=== PATIENT | female | born 1985 | race Caucasian/White ===

== ENCOUNTER 2016-11-19 16:54 | Inpatient (IN) | payer BC ==
[2016-11-19] MEDS ORDERED: TYLENOL EXTRA STRENGTH 500 MG PO PRN (17:34)
[2016-11-19] MEDS ORDERED: Nubain 10 MG/ML IV PRN (17:34)
[2016-11-19] MEDS ORDERED: XYLOCAINE 1% HCL 20 ML MDV IJ PRN (17:34)
[2016-11-19] MEDS ORDERED: Zofran 4 MG/2 ML VIAL IV PRN (17:34)
[2016-11-19] MEDS ORDERED: Phenergan 25 MG INJ IV PRN (17:34)
[2016-11-19] MEDS ORDERED: OMNIPEN 2 GM / NACL 100ML 100 ML IV ONE (17:34)
[2016-11-19] MEDS ORDERED: STADOL 2 MG IV PRN (17:34)
[2016-11-19] MEDS ORDERED: BRETHINE 1 MG/ML SQ PRN (17:34)
[2016-11-19] MEDS ORDERED: PITOCIN 30 UNITS/ LR 500 ML 500 ML IV SCH (18:00)
[2016-11-19 18:37] LABS: BASOPHIL % 0.2 % (0.0-0.4); Eosinophil % 0.9 % (0.00-5.0); Granulocytes % 77.7 % (36.0-66.0); Lymphocytes % 16.6 % (24.0-44.0); Mean Cell Volume 89.5 fl (78-100); Mean Corpuscular Hemoglobin 30.3 pg (26-32); Mean Platelet Volume 12.6 fl (6-9.5); Monocytes % 4.6 % (0.0-12.0); Platelet Count 171 K/mm3 (150-450); Red Blood Count 4.09 M/mm3 (4.1-5.4); Red Cell Distribution Width 12.7 % (11.5-14.0); White Blood Count 12.3 K/mm3 (4.0-10.5)
[2016-11-19] MEDS ORDERED: Cervidil 10 MG VAG SCH (22:00)
[2016-11-20] MEDS ORDERED: Lactated Ringers 1,000 ML IV ONE ×2 (04:41→15:15)
[2016-11-20] MEDS: Lactated Ringers 1,000 ML IV SCH ×2 (05:59→15:16)
[2016-11-20] MEDS ORDERED: OMNIPEN 2 GM / NACL 100ML 100 ML IV ONE (06:00)
[2016-11-20] MEDS ORDERED: PITOCIN 30 UNITS/ LR 500 ML 500 ML IV SCH (06:00)
[2016-11-20] MEDS ORDERED: OMNIPEN 1GM / NaCl 100ML 100 ML IV SCH (10:00)
[2016-11-20] MEDS ORDERED: Dermoplast Spray TP PRN (13:49)
[2016-11-20] MEDS ORDERED: TYLENOL EXTRA STRENGTH 500 MG PO PRN (13:49)
[2016-11-20] MEDS ORDERED: TUCKS TP PRN (13:49)
[2016-11-20] MEDS ORDERED: CORTISONE 1% CREAM TP PRN (13:49)
[2016-11-20] MEDS ORDERED: Mylicon 80MG PO PRN (13:49)
[2016-11-20] MEDS ORDERED: LANSINOH 40 GM TOP PRN (13:49)
[2016-11-20] MEDS ORDERED: Ambien 10 MG PO PRN (13:49)
[2016-11-20] MEDS ORDERED: Anucort-HC SUPPOSITORY PR PRN (13:49)
[2016-11-20] MEDS ORDERED: NORCO 5/325 MG PO PRN (13:49)
[2016-11-20] MEDS ORDERED: Dulcolax 10 MG SUPP PR PRN (13:49)
[2016-11-20] MEDS ORDERED: Adacel Vial IM ONE (17:00)
[2016-11-20] MEDS: MOTRIN 400 MG PO PRN (21:26)
[2016-11-20] MEDS: Colace 100 MG PO SCH (21:26)
[2016-11-21] MEDS: MOTRIN 400 MG PO PRN ×3 (04:30→20:20)
[2016-11-21 06:23] LABS: BASOPHIL % 0.1 % (0.0-0.4); Eosinophil % 0.2 % (0.00-5.0); Granulocytes % 76.8 % (36.0-66.0); Lymphocytes % 17.6 % (24.0-44.0); Mean Platelet Volume 12.7 fl (6-9.5); Monocytes % 5.3 % (0.0-12.0); Platelet Count 149 K/mm3 (150-450); Red Blood Count 3.27 M/mm3 (4.1-5.4); Red Cell Distribution Width 12.7 % (11.5-14.0); White Blood Count 14.3 K/mm3 (4.0-10.5)
[2016-11-21 06:25] LABS: Mean Corpuscular Hemoglobin 30.2 pg (26-32)
[2016-11-21] MEDS: FERREX 150 PO SCH (09:23)
[2016-11-21] MEDS: Colace 100 MG PO SCH ×2 (09:23→21:06)
[2016-11-21 21:28] VITALS: O2SAT 98
--- NOTE | 2016-11-22 08:52 | PCM.DS ---
Discharge Summary Date of Admission: 11/20/16 08:46 Admitting Physician: ASHLEE MARTIN Consults: Consults on Case 11/20/16 09:32 Notify Physician UD 11/20/16 13:50 Notify Physician ROUTINE Primary Care Provider: ASHLEE MARTIN Allergies Allergies No Known Drug Allergies Allergy (Unverified 11/19/16 20:05) Hospital Summary - Hospital Course Hospital Course: 31yo elective induced lilia 40wks, had with 3rd degree perineal laceration. no problems , pain controlled, has had a BM with no problems. mild lochia, and well bonded with - Vitals & Intake/Output Vital Signs: Vital Signs Temperature 98.0 F 11/22/16 02:00 Pulse Rate 100 H 11/22/16 02:00 Respiratory Rate 16 11/22/16 02:00 Blood Pressure 130/80 11/22/16 02:00 O2 Sat by Pulse Oximetry 98 11/22/16 02:00 Intake & Output: Intake & Output 11/19/16 11/20/16 11/21/16 11/22/16 11:59 11:59 11:59 11:59 Intake Total 100 4056 Balance 100 4056 Weight 92.986 kg 92.986 kg - Lab Result Diagrams: 11/21/16 05:10 Discharge Exam General Appearance: no apparent distress, alert Skin Exam: normal color, warm, dry Respiratory Exam: normal breath sounds, lungs clear, No respiratory distress Cardiovascular Exam: regular rate/rhythm, normal heart sounds Gastrointestinal/Abdomen Exam: soft, No tenderness, No mass Extremity Exam: normal inspection, normal range of motion Final Diagnosis/Problem List - Final Discharge Diagnosis/Problem (1) Vaginal delivery Current Visit: Yes Status: Acute (2) Third degree perineal laceration during delivery Current Visit: Yes Status: Acute (3) (infant) Current Visit: Yes Status: Acute - Discharge Disposition: Home, Self-Care Condition: Stable Prescriptions: New Breast Pump 1 each MC DAILY #1 each Docusate Sodium 100 mg [Colace 100 MG] 100 mg PO BID #60 capsule Continue Vits W-Ca,Fe,FA(<1Mg) [] 1 tab PO DAILY Follow up with: ASHLEE MARTIN MD [Primary Care Provider] - 1 Week
[2016-11-22 09:45] VITALS: BP 135/78; PULSE 116
[2016-11-22] MEDS: Colace 100 MG PO SCH (13:44)
[2016-11-22] MEDS: FERREX 150 PO SCH (13:44)
== END 2016-11-22 14:10 | disposition home or self-care (01) | DRG 775 ==
LOC: UNDOADMOB 16:54 → OB 16:54 → OBSVTOIN 11-20 08:46
PROVIDERS: ADMIT Family Medicine; ATTEND Family Medicine
PROC: 10E0XZZ Delivery of Products of Conception, External Approach (ICD-10-PCS; principal; 2016-11-20)
PROC: 0DQR0ZZ Repair Anal Sphincter, Open Approach (ICD-10-PCS; 2016-11-20)
DX: O70.20 Third degree perineal laceration during delivery, unspecified (principal); Z3A.40 40 weeks gestation of pregnancy; Z37.0 Single live birth
CPT/HCPCS: 36415; 80307; 85025; 90715; G0378; J0290; J2590; A9270-GY

== ENCOUNTER 2018-07-01 05:02 | Inpatient (IN) | payer BC ==
[2018-07-01] MEDS ORDERED: XYLOCAINE 1% HCL 20 ML MDV IJ PRN (05:11)
[2018-07-01] MEDS ORDERED: BRETHINE 1 MG/ML SQ PRN (05:12)
[2018-07-01] MEDS ORDERED: Lactated Ringers 1,000 ML IV SCH (05:30)
[2018-07-01] MEDS ORDERED: PITOCIN 30 UNITS/ LR 500 ML 500 ML IV SCH ×2 (05:30)
[2018-07-01 05:33] LABS: Amphetamine,Urine NEGATIVE (NEGATIVE); Barbiturate,Urine NEGATIVE (NEGATIVE); Benzodiazepine,Urine NEGATIVE (NEGATIVE); Cocaine,Urine NEGATIVE (NEGATIVE); Methadone,Urine NEGATIVE (NEGATIVE); Opiate,Urine NEGATIVE (NEGATIVE); PCP,Urine NEGATIVE (NEGATIVE); THC,Urine NEGATIVE (NEGATIVE)
[2018-07-01 05:52] LABS: BASOPHIL % 0.5 % (0.0-0.4); Basophil (Absolute #) 0.04 (0-0.4); Eosinophil % 1.7 % (0.00-5.0); Eosinophil (Absolute #) 0.15 (0-0.5); Granulocyte Absolute (ANC) 6.11 (1.4-6.9); Granulocytes % 69.8 % (36.0-66.0); Hematocrit 37.8 % (35-47); Hemoglobin 12.6 gm/dl (12.0-16.0); Lymphocyte (Absolute #) 1.73 (1.0-4.6); Lymphocytes % 19.8 % (24.0-44.0); Mean Cell Volume 90.2 fl (78-100); Mean Corpuscular Hemoglobin 30.1 pg (26-32); Mean Corpuscular Hgb Concent. 33.3 g/dl (32-36); Mean Platelet Volume 12.4 fl (6-9.5); Monocyte (Absolute #) 0.72 (0.0-1.3); Monocytes % 8.2 % (0.0-12.0); Platelet Count 155 K/mm3 (150-450); Red Blood Count 4.19 M/mm3 (4.1-5.4); Red Cell Distribution Width 13.3 % (11.5-14.0); White Blood Count 8.8 K/mm3 (4.0-10.5)
[2018-07-01] MEDS ORDERED: Anucort-HC SUPPOSITORY PR PRN (11:01)
[2018-07-01] MEDS ORDERED: Dulcolax 10 MG SUPP PR PRN (11:01)
[2018-07-01] MEDS ORDERED: TUCKS TP PRN (11:01)
[2018-07-01] MEDS ORDERED: Dermoplast Spray TP PRN (11:01)
[2018-07-01] MEDS ORDERED: NORCO 5/325 MG PO PRN (11:01)
[2018-07-01] MEDS ORDERED: CORTISONE 1% CREAM TP PRN (11:01)
[2018-07-01] MEDS ORDERED: Mylicon 80MG PO PRN (11:01)
[2018-07-01] MEDS ORDERED: LANSINOH 40 GM TOP PRN (11:01)
[2018-07-01] MEDS ORDERED: TYLENOL EXTRA STRENGTH 500 MG PO PRN (11:01)
[2018-07-01] MEDS ORDERED: Ambien 10 MG PO PRN (11:01)
[2018-07-01] MEDS ORDERED: Restoril 15 MG PO PRN (11:01)
[2018-07-01] MEDS: MOTRIN 400 MG PO PRN (21:48)
[2018-07-01] MEDS: Colace 100 MG PO SCH (21:48)
[2018-07-02] MEDS ORDERED: CEFAZOLIN 2 GM-D5W BAG** 2 GM/50 ML ML IV SCH (05:30)
[2018-07-02 05:47] LABS: BASOPHIL % 0.4 % (0.0-0.4); Basophil (Absolute #) 0.04 (0-0.4); Eosinophil % 1.2 % (0.00-5.0); Eosinophil (Absolute #) 0.11 (0-0.5); Granulocyte Absolute (ANC) 6.45 (1.4-6.9); Granulocytes % 70.3 % (36.0-66.0); Hematocrit 34.9 % (35-47); Hemoglobin 11.6 gm/dl (12.0-16.0); Lymphocyte (Absolute #) 2.05 (1.0-4.6); Lymphocytes % 22.3 % (24.0-44.0); Mean Cell Volume 91.4 fl (78-100); Mean Corpuscular Hgb Concent. 33.2 g/dl (32-36); Mean Platelet Volume 12.6 fl (6-9.5); Monocyte (Absolute #) 0.53 (0.0-1.3); Monocytes % 5.8 % (0.0-12.0); Platelet Count 146 K/mm3 (150-450); Red Blood Count 3.82 M/mm3 (4.1-5.4); Red Cell Distribution Width 13.4 % (11.5-14.0); White Blood Count 9.2 K/mm3 (4.0-10.5)
[2018-07-02 05:51] LABS: Mean Corpuscular Hemoglobin 30.3 pg (26-32)
[2018-07-02 06:04] LABS: INR 0.9 (0.8-3.0); PROTIME 10.5 SECONDS (9.95-12.35)
[2018-07-02 06:06] LABS: PTT 25.6 SECONDS (25.3-37.0)
[2018-07-02] MEDS ORDERED: Lactated Ringers 1,000 ML IV ONE ×2 (06:45→07:16)
[2018-07-02] MEDS ORDERED: BICITRA 30 ML CUP PO SCH (06:45)
[2018-07-02] MEDS ORDERED: Lactated Ringers 1,000 ML IV SCH (06:45)
[2018-07-02] MEDS ORDERED: Reglan 10 MG/2 ML IV SCH (06:45)
[2018-07-02] MEDS ORDERED: Pepcid 20 MG VIAL IV SCH (06:45)
[2018-07-02] MEDS ORDERED: Sensorcaine 0.25% 10 ML ONE (07:16)
--- NOTE | 2018-07-02 09:43 | OP ---
SURGERY DATE/TIME: 07/02/2018 0801 PREOPERATIVE DIAGNOSIS: Patient desires permanent sterilization. POSTOPERATIVE DIAGNOSIS: Patient desires permanent sterilization. PROCEDURES: bilateral tubal ligation. SURGEON: Armando Marx M.D. ANESTHESIA: General by Hermes Perez CRNA. ESTIMATED BLOOD LOSS: Minimal. SPECIMENS: Bilateral fallopian tube segments. INDICATIONS: After informed, written consent was obtained, consent form was reviewed and present on the chart. The patient signed 03/30/2018. I again reviewed the permanent nature of this procedure and also the accepted failure rate of 1:300. She elected to proceed. DESCRIPTION OF PROCEDURE: She underwent general anesthesia and was prepped and draped in usual sterile fashion. An infraumbilical incision was made by knife and carried down through the subcutaneous fat to the level of the fascia. The fascia was grasped with mosquito and tented up and then carefully opened with Metzenbaum scissors. The left fallopian tube was first identified and carried down to the fimbrial edge, grasped with a Shayan and cautery was used to make a window in the mesoappendix. Proximal and distal segments were ligated with chromic tie and the interceding tube segment was dissected free. The free edge of the tube was then cauterized on proximal and distal tube segments using electrocautery. The area was hemostatic. The same was repeated on the right side with no complications. The fascia was closed with 0 Vicryl in running fashion with good closure and good hemostasis were achieved. The subcutaneous fat was irrigated with warm sterile saline and then the skin layer was closed with 4-0 undyed Vicryl in a running subcuticular fashion. Steri-Strips and occlusive dressing were placed over the incision. The patient was transferred to the recovery room in good condition.
[2018-07-02] MEDS: MOTRIN 400 MG PO PRN ×2 (10:03→17:57)
[2018-07-02] MEDS: Colace 100 MG PO SCH ×2 (10:03→22:00)
[2018-07-02] MEDS: FERREX 150 PO SCH (10:03)
[2018-07-02] MEDS ORDERED: DIPRIVAN 200 MG/20 ML IV ONE (13:50)
[2018-07-02] MEDS ORDERED: SUBLIMAZE 100 MCG/2 ML IV ONE (13:59)
[2018-07-02] MEDS: THERAGRAN MULTIVITAMIN PO SCH (18:49)
[2018-07-03 03:22] VITALS: O2SAT 97
[2018-07-03] MEDS: MOTRIN 400 MG PO PRN (06:45)
--- NOTE | 2018-07-03 07:46 | PCM.DS ---
Discharge Summary Date of Admission: 07/01/18 08:45 Admitting Physician: ASHLEE MARTIN Consults: Consults on Case 07/02/18 07:00 Notify Anesthesia Provider ROUTINE Primary Care Provider: ASHLEE MARTIN Allergies Allergies No Known Drug Allergies Allergy (Unverified 11/19/16 20:05) Hospital Summary - Hospital Course Hospital Course: patient had uncomplicated on 07/01/18, doing well . had second degree perineal laceration repair. had a tubal on 07/02 with no complications. and doing well. - Vitals & Intake/Output Vital Signs: Vital Signs Temperature 97.8 F 07/03/18 02:00 Pulse Rate 82 07/03/18 02:00 Respiratory Rate 16 07/03/18 02:00 Blood Pressure 125/88 07/03/18 02:00 O2 Sat by Pulse Oximetry 97 07/03/18 02:00 Intake & Output: Intake & Output 06/30/18 07/01/18 07/02/18 07/03/18 11:59 11:59 11:59 11:59 Intake Total 3150 Balance 3150 Weight 98.883 kg 98.883 kg - Lab Result Diagrams: 07/02/18 05:06 Discharge Exam General Appearance: no apparent distress, alert Respiratory Exam: normal breath sounds, lungs clear, No respiratory distress Cardiovascular Exam: regular rate/rhythm, normal heart sounds Gastrointestinal/Abdomen Exam: soft, other (incision clean, dry, intact), No tenderness, No mass Extremity Exam: normal inspection, normal range of motion Final Diagnosis/Problem List - Final Discharge Diagnosis/Problem (1) Vaginal delivery Current Visit: No Status: Acute Code(s): O80 - ENCOUNTER FOR FULL-TERM UNCOMPLICATED DELIVERY (2) Second degree perineal laceration during delivery Current Visit: Yes Status: Acute Code(s): O70.1 - SECOND DEGREE PERINEAL LACERATION DURING DELIVERY (3) Tubal ligation status Current Visit: Yes Status: Acute Code(s): Z98.51 - TUBAL LIGATION STATUS (4) () Current Visit: No Status: Acute Code(s): Z78.9 - OTHER SPECIFIED HEALTH STATUS - Discharge Disposition: Home, Self-Care Condition: Stable Prescriptions: New Breast Pump 1 each UD #1 each Continue Vits W-Ca,Fe,FA(<1Mg) [] 1 tab PO DAILY Follow up with: ASHLEE MARTIN MD [Primary Care Provider] - 1 Week
[2018-07-03] MEDS: Colace 100 MG PO SCH (08:46)
[2018-07-03] MEDS: FERREX 150 PO SCH (08:46)
[2018-07-03] MEDS: THERAGRAN MULTIVITAMIN PO SCH (08:46)
[2018-07-03 09:24] VITALS: BP 144/82; PULSE 103
[2018-07-03] MEDS ORDERED: NON-FORMULARY ITEM (Prenatal Vits W-Ca,Fe,Fa(<1mg) [Prenatal] 1 TAB) PO SCH (10:00)
== END 2018-07-03 10:30 | disposition home or self-care (01) | DRG 798 ==
LOC: OB 05:02 → OBSVTOIN 08:45
PROVIDERS: ADMIT Family Medicine; ATTEND Family Medicine
PROC: 0KQM0ZZ Repair Perineum Muscle, Open Approach (ICD-10-PCS; principal; 2018-07-01)
PROC: 10E0XZZ Delivery of Products of Conception, External Approach (ICD-10-PCS; 2018-07-01)
PROC: 0UL70ZZ Occlusion of Bilateral Fallopian Tubes, Open Approach (ICD-10-PCS; 2018-07-02)
DX: O70.1 Second degree perineal laceration during delivery (principal); Z37.0 Single live birth; O69.81X0 Labor and delivery complicated by cord around neck, without compression, not applicable or unspecified; Z3A.40 40 weeks gestation of pregnancy; Z30.2 Encounter for sterilization
CPT/HCPCS: 36415; 80307; 85025; 85610; 85730; 88302; G0378; J0690; J2590; J2704; J3010; A9270-GY

== ENCOUNTER 2021-11-15 07:29 | Emergency (ER) | payer BC ==
[2021-11-15] MEDS ORDERED: MORPHINE SULFATE 4 MG INJ IV ONE (07:48)
[2021-11-15] MEDS ORDERED: Zofran 4 MG/2 ML VIAL IV ONE (07:48)
--- NOTE | 2021-11-15 07:52 | ERPHSYRPT ---
- History of Present Illness Time Seen by Provider: 11/15/21 07:35 Historian: patient Exam Limitations: no limitations Patient Subjective Stated Complaint: Abdominal pain Triage Nursing Assessment: Patient ambulated back to ED and transferred self to bed. Patient A+O X3. Patient's skin pink, warm and dry. Patient complains of right lower abdominal pain intermittently since Friday. Patient denies N/V or diarrhea. Patient abdomen soft and round with BS X 4. Patient states pain is constant aching with intermittent sharp pain that goes into back 11/07. Physician History: 36-year-old female presented in ER with chief complaint of right-sided abdominal pain more in the right lower quadrant moderate to severe intensity dull to sharp, intermittent, more with ambulation/movement and better with lying. Reports some radiation to the back. Denies associated nausea or vomiting. denies any urinary symptoms. Does report having constipation and took MiraLAX which relieved her constipation yesterday. No fever or chills reported. Timing/Duration: day(s), intermittent, gradual onset, worse Quality: dullness, sharpness Abdominal Pain Onset Location: RUQ, RLQ, flank Pain Radiation: back Severity of Pain-Max: moderate Severity of Pain-Current: moderate Modifying Factors: Improves With: lying down. Worsens With: movement, palpation Associated Symptoms: denies symptoms Previous symptoms: no prior history Allergies/Adverse Reactions: No Known Drug Allergies Allergy (Verified 11/15/21 07:35) Hx Influenza Vaccination/Date Given: No Hx Pneumococcal Vaccination/Date Given: No Immunizations Up to Date: Yes Travel Risk - International Travel Have you traveled outside of the country in past 3 weeks: No - Coronavirus Screening Are you exhibiting any of the following symptoms?: No Close contact with a COVID-19 positive Pt in past 14-21 Days: No - Vaccine Status Have you recieved a Covid-19 vaccination: Yes Magnetic Tape Winder: Heyy - Review of Systems Constitutional: No Symptoms Eyes: No Symptoms Ears, Nose, & Throat: No Symptoms Respiratory: No Symptoms Cardiac: No Symptoms Abdominal/Gastrointestinal: Abdominal Pain Genitourinary Symptoms: No Symptoms Musculoskeletal: No Symptoms Skin: No Symptoms Neurological: No Symptoms Psychological: No Symptoms Endocrine: No Symptoms Hematologic/Lymphatic: No Symptoms Immunological/Allergic: No Symptoms - Past Medical History Pertinent Past Medical History: No Neurological History: No Pertinent History ENT History: No Pertinent History Cardiac History: No Pertinent History Respiratory History: No Pertinent History Endocrine Medical History: No Pertinent History Musculoskeletal History: No Pertinent History GI Medical History: No Pertinent History History: No Pertinent History Psycho-Social History: No Pertinent History Female Reproductive Disorders: No Pertinent History - Past Surgical History Past Surgical History: Yes Neuro Surgical History: No Pertinent History Cardiac: No Pertinent History Respiratory: No Pertinent History Gastrointestinal: No Pertinent History Genitourinary: No Pertinent History Musculoskeletal: Other Female Surgical History: Tubal Ligation Other Surgical History: removal of calcium buildup on left foot and bilateral Eye surgery for crossed to help with the muscles in her eyes. trigger thumb Right - Social History Smoking Status: Never smoker Exposure to second hand smoke: No Drug Use: none Patient Lives Alone: No - Female History Hx Last Menstrual Period: last week Hx Now: No - Nursing Vital Signs Nursing Vital Signs: Initial Vital Signs Temperature 96.9 F 11/15/21 07:38 Pulse Rate 84 11/15/21 07:38 Respiratory Rate 18 11/15/21 07:38 Blood Pressure 159/125 11/15/21 07:38 O2 Sat by Pulse Oximetry 100 11/15/21 07:38 Pain Scale Pain Intensity 7 - Physical Exam General Appearance: no apparent distress, alert Eye Exam: PERRL/EOMI Ears, Nose, Throat Exam: normal ENT inspection Neck Exam: normal inspection, full range of motion Respiratory Exam: normal breath sounds, lungs clear Cardiovascular Exam: regular rate/rhythm, normal heart sounds Gastrointestinal/Abdomen Exam: soft, normal bowel sounds, tenderness (Right flank/right lower quadrant. Negative Rosing sign. Negative obturator sign.), No guarding Back Exam: normal inspection, normal range of motion, No CVA tenderness Extremity Exam: normal inspection Neurologic Exam: alert, oriented x 3, cooperative Skin Exam: normal color SpO2 Interpretation: normal SpO2: 100 O2 Delivery: Room Air Ordered Tests: Active Orders 24 hr Category Date Time Status IV Insertion STAT Care 11/15/21 07:48 Active NPO (ED) STAT Care 11/15/21 07:48 Active ABDOMEN AND PELVIS W/0 CONTRAS [CT] Stat Exams 11/15/21 07:48 Completed CBC W DIFF Stat Lab 11/15/21 07:49 Completed CMP Stat Lab 11/15/21 07:52 Completed HCG,QUALITATIVE URINE Stat Lab 11/15/21 07:49 Completed LIPASE Stat Lab 11/15/21 07:52 Completed UA W/RFX CULTURE Stat Lab 11/15/21 07:50 Completed Medication Summary Discontinued Medications Generic Name Dose Route Start Last Admin Trade Name Poonam PRN Reason Stop Dose Admin Morphine Sulfate 4 mg 11/15/21 07:48 Morphine Sulfate 4 Mg/Ml Injection IV 11/15/21 07:49 STAT ONE Ondansetron HCl 4 mg 11/15/21 07:48 Ondansetron Hcl 4 Mg/2 Ml Vial IV 11/15/21 07:49 STAT ONE Lab/Rad Data: Laboratory Result Diagrams 11/15/21 07:49 11/15/21 07:52 Laboratory Results 11/15/21 11/15/21 11/15/21 Range/Units 07:52 07:50 07:49 WBC 6.3 (4.0-10.5) x10^3/uL RBC 4.85 (4.1-5.4) x10^6/uL Hgb 13.6 (12.0-16.0) g/dL Hct 41.8 (35-47) % MCV 86.2 (78-100) fL MCH 28.0 (26-32) pg MCHC 32.5 (32-36) g/dL RDW 12.8 (11.5-14.0) % Plt Count 233 (150-450) x10^3/uL MPV 10.9 (7.5-11.0) fL Gran % 59.5 (36.0-66.0) % Immature Gran % (Auto) 0.3 (0.00-0.4) % Nucleat RBC Rel Count 0.0 (0.00-0.1) % Eos # (Auto) 0.09 (0-0.5) x10^3/uL Immature Gran # (Auto) 0.02 (0.00-0.03) x10^3u/L Absolute Lymphs (auto) 2.00 (1.0-4.6) x10^3/uL Absolute Monos (auto) 0.40 (0.0-1.3) x10^3/uL Absolute Nucleated RBC 0.00 (0.00-0.01) x10^3u/L Lymphocytes % 31.9 (24.0-44.0) % Monocytes % 6.4 (0.0-12.0) % Eosinophils % 1.4 (0.00-5.0) % Basophils % 0.5 (0.0-0.4) % Absolute Granulocytes 3.73 (1.4-6.9) x10^3/uL Basophils # 0.03 (0-0.4) x10^3/uL Sodium 140 (137-145) mmol/L Potassium 3.9 (3.5-5.1) mmol/L Chloride 104 (98-107) mmol/L Carbon Dioxide 26 (22-30) mmol/L Anion Gap 13.4 (5-15) MEQ/L BUN 11 (7-17) mg/dL Creatinine 0.94 (0.52-1.04) mg/dL Estimated GFR > 60.0 ML/MIN Glucose 110 H (74-106) mg/dL Calcium 9.8 (8.4-10.2) mg/dL Total Bilirubin 0.40 (0.2-1.3) mg/dL AST 24 (14-36) U/L ALT 19 (0-35) U/L Alkaline Phosphatase 64 (38-126) U/L Serum Total Protein 7.7 (6.3-8.2) g/dL Albumin 4.8 (3.5-5.0) g/dL Lipase 66 (23-300) U/L Urinalys Dipstick Clnc MAIN LAB Urine Color YELLOW (YELLOW) Urine Appearance CLEAR (CLEAR) Urine pH 8.5 (5-6) Ur Specific [place] 1.025 (1.005-1.025) POC Urine Protein Conf NEGATIVE (Negative) Urine Ketones NEGATIVE (NEGATIVE) Urine Nitrite NEGATIVE (NEGATIVE) Urine Bilirubin NEGATIVE (NEGATIVE) Urine Urobilinogen 0.2 (0-1) mg/dL Urine Leukocytes NEGATIVE (NEGATIVE) Urine WBC (Auto) 0-2 (0-5) /HPF Urine RBC (Auto) NONE (0-2) /HPF U Epithel Cells (Auto) RARE (FEW) /HPF Urine Bacteria (Auto) RARE (NEGATIVE) /HPF Urine RBC NEGATIVE (0-5) Peng/ul Urine Mucus (Auto) SLIGHT (NEGATIVE) /HPF Ur Culture Indicated? NO Urine Glucose NEGATIVE (NEGATIVE) mg/dL Urine HCG, Qual (Negative) 11/15/21 Range/Units 07:49 WBC (4.0-10.5) x10^3/uL RBC (4.1-5.4) x10^6/uL Hgb (12.0-16.0) g/dL Hct (35-47) % MCV (78-100) fL MCH (26-32) pg MCHC (32-36) g/dL RDW (11.5-14.0) % Plt Count (150-450) x10^3/uL MPV (7.5-11.0) fL Gran % (36.0-66.0) % Immature Gran % (Auto) (0.00-0.4) % Nucleat RBC Rel Count (0.00-0.1) % Eos # (Auto) (0-0.5) x10^3/uL Immature Gran # (Auto) (0.00-0.03) x10^3u/L Absolute Lymphs (auto) (1.0-4.6) x10^3/uL Absolute Monos (auto) (0.0-1.3) x10^3/uL Absolute Nucleated RBC (0.00-0.01) x10^3u/L Lymphocytes % (24.0-44.0) % Monocytes % (0.0-12.0) % Eosinophils % (0.00-5.0) % Basophils % (0.0-0.4) % Absolute Granulocytes (1.4-6.9) x10^3/uL Basophils # (0-0.4) x10^3/uL Sodium (137-145) mmol/L Potassium (3.5-5.1) mmol/L Chloride (98-107) mmol/L Carbon Dioxide (22-30) mmol/L Anion Gap (5-15) MEQ/L BUN (7-17) mg/dL Creatinine (0.52-1.04) mg/dL Estimated GFR ML/MIN Glucose (74-106) mg/dL Calcium (8.4-10.2) mg/dL Total Bilirubin (0.2-1.3) mg/dL AST (14-36) U/L ALT (0-35) U/L Alkaline Phosphatase (38-126) U/L Serum Total Protein (6.3-8.2) g/dL Albumin (3.5-5.0) g/dL Lipase (23-300) U/L Urinalys Dipstick Clnc Urine Color (YELLOW) Urine Appearance (CLEAR) Urine pH (5-6) Ur Specific [place] (1.005-1.025) POC Urine Protein Conf (Negative) Urine Ketones (NEGATIVE) Urine Nitrite (NEGATIVE) Urine Bilirubin (NEGATIVE) Urine Urobilinogen (0-1) mg/dL Urine Leukocytes (NEGATIVE) Urine WBC (Auto) (0-5) /HPF Urine RBC (Auto) (0-2) /HPF U Epithel Cells (Auto) (FEW) /HPF Urine Bacteria (Auto) (NEGATIVE) /HPF Urine RBC (0-5) Peng/ul Urine Mucus (Auto) (NEGATIVE) /HPF Ur Culture Indicated? Urine Glucose (NEGATIVE) mg/dL Urine HCG, Qual NEGATIVE (Negative) - Progress Progress: improved, re-examined Progress Note: 11/15/21 09:28 36-year-old is evaluated for right-sided abdominal pain. She is offered pain medication which she declined multiple times. She has minimal tenderness on repeated evaluations and feels much better without any medication. She has a normal white count, unremarkable chemistries, no UTI. CT abdomen pelvis grossly negative except for 3.6 cm right ovarian cyst. She is recommended outpatient follow-up with her [facility]ICAL SCIENCE LIAISON. Discussed signs symptoms of worsening needing return to ER which she seems understanding. Counseled pt/family regarding: lab results, diagnosis, need for follow-up, rad results - Departure Departure Disposition: Home Clinical Impression: Right sided abdominal pain, Right ovarian cyst Condition: Stable Critical Care Time: No Referrals: ASHLEE MARTIN MD [Primary Care Provider] - Follow up/PCP as directed (1-2 days for reevaluation) Instructions: Severe Abdominal Pain, Adult (DC), Ovarian Cyst ED Additional Instructions: Take Tylenol/ibuprofen as needed for pain. Follow-up with primary care/CL[facility]ICAL SCIENCE LIAISON for reevaluation. Return to ER for intractable pain/nausea vomiting/fever chills etc. Prescriptions: Ibuprofen 600 mg PO Q6HPRN PRN 10 Days #20 tablet PRN Reason: Pain
[2021-11-15 07:54] LABS: Absolute Neutrophil Ct (ANC) 3.73 x10^3/uL (1.4-6.9); Basophil (Absolute #) 0.03 x10^3/uL (0-0.4); Eosinophil % 1.4 % (0.00-5.0); Eosinophil (Absolute #) 0.09 x10^3/uL (0-0.5); Hematocrit 41.8 % (35-47); Hemoglobin 13.6 g/dL (12.0-16.0); Lymphocytes % 31.9 % (24.0-44.0); Mean Cell Volume 86.2 fL (78-100); Mean Corpuscular Hgb Concent. 32.5 g/dL (32-36); Mean Platelet Volume 10.9 fL (7.5-11.0); Monocytes % 6.4 % (0.0-12.0); Neutrophil % 59.5 % (36.0-66.0); Platelet Count 233 x10^3/uL (150-450); Red Blood Count 4.85 x10^6/uL (4.1-5.4); Red Cell Distribution Width 12.8 % (11.5-14.0); White Blood Count 6.3 x10^3/uL (4.0-10.5)
[2021-11-15 08:01] LABS: Bacteria RARE /HPF (NEGATIVE); Epithelial Cells RARE /HPF (FEW); Mucus SLIGHT /HPF (NEGATIVE); WBC 0-2 /HPF (0-5)
[2021-11-15 08:02] LABS: Dipstick done @ ? MAIN LAB
[2021-11-15 08:04] LABS: Appearance CLEAR (CLEAR)
[2021-11-15 08:05] LABS: Bilirubin NEGATIVE (NEGATIVE); Glucose NEGATIVE (NEGATIVE); Ketones NEGATIVE (NEGATIVE); Nitrite NEGATIVE (NEGATIVE); Ph 8.5 (5-6); Protein,Urine Dip NEGATIVE (Negative); RBC NEGATIVE Ery/ul (0-5); Specific Gravity 1.025 (1.005-1.025); Urine Cultured Indicated? NO; Urobilinogen 0.2 mg/dL (0-1)
[2021-11-15 08:31] LABS: ALBUMIN 4.8 g/dL (3.5-5.0); ALKALINE PHOSPHATASE 64 U/L (38-126); ANION GAP 13.4 MEQ/L (5-15); BLOOD UREA NITROGEN 11 mg/dL (7-17); CHLORIDE 104 mmol/L (98-107); Calcium 9.8 mg/dL (8.4-10.2); Carbon Dioxide 26 mmol/L (22-30); Creatinine 1 0.94 mg/dL (0.52-1.04); EST GLOMERULAR FILTRATION RATE > 60.0 ML/MIN; Glucose 110 mg/dL (74-106); LIPASE 66 U/L (23-300); Potassium 3.9 mmol/L (3.5-5.1); SGOT/AST 24 U/L (14-36); SGPT/ALT 19 U/L (0-35); SODIUM 140 mmol/L (137-145); Total Protein 7.7 g/dL (6.3-8.2)
--- NOTE | 2021-11-15 08:41 | XRAY ---
Indication: Right pelvic pain 4 days. Multiple contiguous axial images obtained through the abdomen and pelvis without contrast. Comparison: None Lung bases clear. Heart not enlarged. Noncontrasted stomach and bowel loops appear nonobstructed with normal appendix. Multiple hepatic cysts, largest 3.6 cm in the right lobe near the dome of the diaphragm. 14 cm splenomegaly. 3 cm right ovary cyst. No free fluid/air. Remaining liver, gallbladder, pancreas, spleen, adrenal glands, kidneys, ureters, bladder, uterus, and aorta are unremarkable for noncontrast exam. Osseous structures intact. Impression: 1. 3 cm right ovary cyst, hepatic cysts, and splenomegaly. 2. Remaining CT abdomen/pelvis without contrast exam is negative.
[2021-11-15 09:31] VITALS: BP 124/94; PULSE 74; O2SAT 100
== END 2021-11-15 09:46 | disposition home or self-care (01) ==
LOC: ED 07:29
DX: N83.201 Unspecified ovarian cyst, right side (principal); R10.31 Right lower quadrant pain; R10.11 Right upper quadrant pain
CPT/HCPCS: 36000; 36415; 74176; 80053; 81015; 81025; 83690; 85025; 99283

== ENCOUNTER 2021-11-16 14:26 | Observation (INO) | payer BC ==
[~2021-11-16 14:26] MED LIST: NORCO 7.5/325 MG TAB ONE
[2021-11-16] MEDS ORDERED: Hydromorphone 1 mg/ml Injection IV PRN (14:46)
[2021-11-16] MEDS ORDERED: Zofran 4 MG/2 ML VIAL IV PRN (14:47)
[2021-11-16] MEDS ORDERED: Lactated Ringers 1,000 ML IV SCH (15:00)
[2021-11-16 15:30] LABS: INFLUENZA A NEGATIVE (NEGATIVE); INFLUENZA B NEGATIVE (NEGATIVE); RESPIRATORY SYNCTIAL VIRUS NEGATIVE (Negative); SARS-CoV-2 Xpert Express NEGATIVE (NEGATIVE)
[2021-11-16] MEDS ORDERED: Sensorcaine 0.25% 10 ML ONE (15:42)
[2021-11-16 15:46] LABS: ALBUMIN 4.7 g/dL (3.5-5.0); ALKALINE PHOSPHATASE 66 U/L (38-126); ANION GAP 13.3 MEQ/L (5-15); Absolute Neutrophil Ct (ANC) 5.12 x10^3/uL (1.4-6.9); BLOOD UREA NITROGEN 8 mg/dL (7-17); Basophil (Absolute #) 0.04 x10^3/uL (0-0.4); CHLORIDE 102 mmol/L (98-107); Calcium 9.8 mg/dL (8.4-10.2); Carbon Dioxide 24 mmol/L (22-30); Creatinine 1 0.85 mg/dL (0.52-1.04); EST GLOMERULAR FILTRATION RATE > 60.0 ML/MIN; Eosinophil % 0.5 % (0.00-5.0); Eosinophil (Absolute #) 0.04 x10^3/uL (0-0.5); Glucose 91 mg/dL (74-106); Hematocrit 40.5 % (35-47); Hemoglobin 13.4 g/dL (12.0-16.0); Lymphocyte (Absolute #) 2.15 x10^3/uL (1.0-4.6); Lymphocytes % 27.7 % (24.0-44.0); Mean Cell Volume 86.4 fL (78-100); Mean Corpuscular Hemoglobin 28.6 pg (26-32); Mean Corpuscular Hgb Concent. 33.1 g/dL (32-36); Mean Platelet Volume 10.8 fL (7.5-11.0); Monocyte (Absolute #) 0.39 x10^3/uL (0.0-1.3); Platelet Count 231 x10^3/uL (150-450); Red Blood Count 4.69 x10^6/uL (4.1-5.4); Red Cell Distribution Width 12.6 % (11.5-14.0); SGOT/AST 24 U/L (14-36); SGPT/ALT 17 U/L (0-35); SODIUM 135 mmol/L (137-145); Total Protein 7.6 g/dL (6.3-8.2); White Blood Count 7.8 x10^3/uL (4.0-10.5)
[2021-11-16] MEDS ORDERED: Versed 2 MG/2 ML Injection ONE (16:23)
--- NOTE | 2021-11-16 16:23 | PCM.HP ---
History of Present Illness - Chief Complaint Chief Complaint: cystic mass, pelvic pain History of Present Illness: is a 36 year old female. 36 yo with hx of tubal sterilization 2019 co worsening right lower quadrant pain since this past friday. denies nausea or vomiting at this time. sonogram revealing right adnexal heterogeneous mass 4x3 cm. [address] done showing 3 cm right adnexal cyst. Medications & Allergies Home Medications: Home Medication List Hydrocodone/Acetaminophen [Hydrocodone-Acetamin 5-325 mg] 1 tablet PO Q6H PRN 11/16/21 [History Confirmed 11/16/21] Allergies/Adverse Reactions: Allergies Allergy/AdvReac Type Severity Reaction Status Date / Time No Known Drug Allergies Allergy Verified 11/16/21 14:51 - Past Medical History Past Medical History: No Neurological History: No Pertinent History ENT History: No Pertinent History Cardiac History: No Pertinent History Respiratory History: No Pertinent History Endocrine Medical History: No Pertinent History Musculoskelatal History: No Pertinent History GI Medical History: No Pertinent History History: No Pertinent History Pyscho-Social History: No Pertinent History Reproductive Disorders: No Pertinent History - Female History Hx Last Menstrual Period: 11/09/21 Are you now?: No - Past Surgical History Past Surgical History: Yes Neuro Surgical History: No Pertinent History Cardiac History: No Pertinent History Respiratory Surgery: No Pertinent History GI Surgical History: No Pertinent History Genitourinary Surgical Hx: No Pertinent History Musculskeletal Surgical Hx: Other Female Surgical History: Tubal Ligation Other Surgical History: removal of calcium buildup on left foot and bilateral Eye surgery for crossed to help with the muscles in her eyes. trigger thumb Right - Social History Smoking Status: Never smoker Exposure to second hand smoke: No Alcohol: None Drug Use: none - Physical Exam Vital Signs: Vital Signs - 24 hr Temp Pulse Resp BP Pulse Ox 11/16/21 15:51 97.5 F 73 16 140/97 95 11/16/21 14:48 97.5 F 73 16 140/97 95 Neurologic Exam: alert, oriented x 3 Cardiovascular Exam: regular rate/rhythm Gastrointestinal/Abdomen Exam: soft, tenderness, other (tenderness to rlq region upon deep palpation) Pelvic Exam: not done Results - Labs Lab/Micro Results: Lab Results-Last 24 Hours 11/16/21 11/16/21 11/16/21 Range/Units 14:48 15:31 15:31 WBC 7.8 (4.0-10.5) x10^3/uL RBC 4.69 (4.1-5.4) x10^6/uL Hgb 13.4 (12.0-16.0) g/dL Hct 40.5 (35-47) % MCV 86.4 (78-100) fL MCH 28.6 (26-32) pg MCHC 33.1 (32-36) g/dL RDW 12.6 (11.5-14.0) % Plt Count 231 (150-450) x10^3/uL MPV 10.8 (7.5-11.0) fL Gran % 66.0 (36.0-66.0) % Immature Gran % (Auto) 0.3 (0.00-0.4) % Nucleat RBC Rel Count 0.0 (0.00-0.1) % Eos # (Auto) 0.04 (0-0.5) x10^3/uL Immature Gran # (Auto) 0.02 (0.00-0.03) x10^3u/L Absolute Lymphs (auto) 2.15 (1.0-4.6) x10^3/uL Absolute Monos (auto) 0.39 (0.0-1.3) x10^3/uL Absolute Nucleated RBC 0.00 (0.00-0.01) x10^3u/L Lymphocytes % 27.7 (24.0-44.0) % Monocytes % 5.0 (0.0-12.0) % Eosinophils % 0.5 (0.00-5.0) % Basophils % 0.5 (0.0-0.4) % Absolute Granulocytes 5.12 (1.4-6.9) x10^3/uL Basophils # 0.04 (0-0.4) x10^3/uL Sodium 135 L (137-145) mmol/L Potassium 4.0 (3.5-5.1) mmol/L Chloride 102 (98-107) mmol/L Carbon Dioxide 24 (22-30) mmol/L Anion Gap 13.3 (5-15) MEQ/L BUN 8 (7-17) mg/dL Creatinine 0.85 (0.52-1.04) mg/dL Estimated GFR > 60.0 ML/MIN Glucose 91 (74-106) mg/dL Calcium 9.8 (8.4-10.2) mg/dL Total Bilirubin 0.60 (0.2-1.3) mg/dL AST 24 (14-36) U/L ALT 17 (0-35) U/L Alkaline Phosphatase 66 (38-126) U/L Serum Total Protein 7.6 (6.3-8.2) g/dL Albumin 4.7 (3.5-5.0) g/dL Influenza Type A Ag NEGATIVE (NEGATIVE) Influenza Type B Ag NEGATIVE (NEGATIVE) RSV (PCR) NEGATIVE (Negative) SARS-CoV-2 (PCR) NEGATIVE (NEGATIVE) Assessment/Plan (1) Pelvic pain Current Visit: Yes Status: Acute Code(s): R10.2 - PELVIC AND PERINEAL PAIN (2) Complex cyst of right ovary Current Visit: Yes Status: Acute Code(s): N83.291 - OTHER OVARIAN CYST, RIGHT SIDE
[2021-11-16] MEDS ORDERED: DIPRIVAN 200 MG/20 ML IV ONE (16:26)
[2021-11-16] MEDS ORDERED: Zofran 4 MG/2 ML VIAL ONE (16:26)
[2021-11-16] MEDS ORDERED: BRIDION 200MG/2ML IV ONE (16:26)
[2021-11-16] MEDS ORDERED: Zemuron 100 MG/10 ML ONE (16:26)
[2021-11-16] MEDS ORDERED: Decadron 4 MG INJ ONE (16:26)
[2021-11-16] MEDS ORDERED: OFIRMEV 100 ML IV ONE (16:30)
[2021-11-16] MEDS ORDERED: Pre-Attached Lta Kit TP ONE (16:30)
[2021-11-16] MEDS ORDERED: KEFZOL 1 GM ONE (16:34)
[2021-11-16] MEDS ORDERED: DEXMEDETOMIDINE 80 MCG/20ML-NS IV ONE (16:40)
[2021-11-16] MEDS ORDERED: SUBLIMAZE 100 MCG/2 ML ONE ×2 (16:41→17:15)
[2021-11-16] MEDS ORDERED: EXPAREL 133 MG/10 ML VIAL IJ ONE (16:47)
[2021-11-16] MEDS ORDERED: Transderm Scop 1.5MG Patch ONE (16:47)
[2021-11-16] MEDS ORDERED: Ephedrine Sulfate 50 MG/ML ONE (16:52)
[2021-11-16] MEDS ORDERED: TRANDATE 20 MG/4 ML SYRINGE IV ONE (17:10)
[2021-11-16] MEDS ORDERED: APRESOLINE 20 MG/ML INJ ONE (17:20)
[2021-11-16] MEDS ORDERED: ATROPINE SULFATE 1MG ONE (17:30)
[2021-11-16] MEDS ORDERED: MORPHINE SULFATE 4 MG INJ IV PRN (18:41)
[2021-11-16] MEDS ORDERED: NORCO 7.5/325 MG TAB PO ONE (18:42)
[2021-11-16 19:40] LABS: Appearance CLEAR (CLEAR); Bilirubin NEGATIVE (NEGATIVE); Glucose NEGATIVE (NEGATIVE); Ketones NEGATIVE (NEGATIVE); Nitrite NEGATIVE (NEGATIVE); Protein,Urine Dip NEGATIVE (Negative); RBC NEGATIVE Ery/ul (0-5); Urobilinogen 0.2 mg/dL (0-1)
[2021-11-16 19:41] LABS: Dipstick done @ ? MAIN LAB
[2021-11-16 19:42] LABS: Bacteria NONE SEEN /HPF (NEGATIVE); RBC NONE SEEN /HPF (0-2); WBC NONE SEEN /HPF (0-5)
[2021-11-16 21:35] VITALS: BP 105/68; PULSE 80; O2SAT 95
--- NOTE | 2021-11-19 11:52 | OP ---
SURGERY DATE/TIME: 11/16/2021 1632 PREOPERATIVE DIAGNOSIS: Severe pelvic pain, right adnexal mass. POSTOPERATIVE DIAGNOSIS: Pelvic pain and right paratubal hemorrhagic cyst. PROCEDURE: Right salpingectomy with removal of paratubal hemorrhagic cyst. SURGEON: Bret Covington D.O. MOTOR BLOCK MECHANIC: Marj Chacon, hand frame surgical elastic knitter. ANESTHESIA: General. ESTIMATED BLOOD LOSS: Minimal. COMPLICATIONS: None. INDICATIONS: The risks, benefits, indications and alternatives of the procedure were reviewed with the patient prior to procedure. The patient understood the risk of infection, bleeding, bowel injury, bladder injury, ureteral injury, uterine perforation, pelvic infection and thromboembolic disorder associated with this surgery and desires to have this surgery as a possible need to alleviate her current medical condition. DESCRIPTION OF PROCEDURE AND FINDINGS: At this point the patient is taken to the operating room, given general sedation, placed in the dorsal lithotomy position, prepped and draped in the usual sterile fashion. A weighted speculum was then placed in through the vagina and the anterior lip of the cervix is grasped with a single tooth tenaculum. Endocervical dilators were advanced through the endocervical canal as a means to dilate the cervix and uterine manipulator was inserted in through the endocervical canal as a means to manipulate the uterus. Attention was then turned to the patient's abdomen where a 5 mm skin incision was made in the umbilical fold where a 5 mm trocar and sleeve were advanced under direct visualization where pneumoperitoneum was obtained with 4 liters of CO2 gas. An additional incision was made in the left middle quadrant region where a 5 mm trocar and sleeve were advanced under direct visualization and an additional third trocar was placed 2 cm above the symphysis pubic where a 5 mm trocar and sleeve were advanced under direct visualization. A survey of the patient's pelvis revealed her to have a right adnexal cyst on the fallopian tube which is approximately 4 x 3 cm which appeared to be a paratubal cyst and appeared to be hemorrhagic. From this point the LigaSure was then used, was taken through the trocar site where the right fallopian tube was elevated and the LigaSure was placed on the mesosalpinx where it was coagulated and cut towards the cornual region of the uterus where the entire tube was removed without complication. The cystic portion was then removed from the trocar site without complication with spillage that was noted. From this point extensive irrigation was taken place. There were no other abnormalities noted within the pelvic region. There were no endometriotic lesions that were noted within the pelvic region as well as the abdominal region and at this point the bilateral ovaries appeared to be within normal limits with no abnormalities that were noted. From this point, all instruments were removed from the patient's abdominal region. The incision was closed with 4-0 Monocryl suture. The patient was then taken out of the dorsal lithotomy position, was taken out of anesthesia and was then taken to the recovery room in stable condition. All instruments and laps were accounted for x2.
== END 2021-11-16 21:10 | disposition home or self-care (01) ==
LOC: MED SURG 14:31
PROVIDERS: ADMIT Family Medicine; ATTEND Family Medicine
DX: R10.2 Pelvic and perineal pain (principal); N83.291 Other ovarian cyst, right side; Z20.828 Contact with and (suspected) exposure to other viral communicable diseases
CPT/HCPCS: 0241U; 36415; 58700; 58720; 80053; 81001; 85025; G0378; J0360; J0461; J0690; J1100; J2250; J2405; J2704; J3010; A9270-GY